=== PATIENT | female | born 2005 | race Caucasian/White ===

== ENCOUNTER 2023-07-17 21:54 | Emergency (ER) | payer BC, SELFPAY ==
[2023-07-17 22:01] VITALS: BP 127/81; PULSE 97; RESP 16; TEMP 36.7; O2SAT 98
--- NOTE | 2023-07-17 22:13 | ED.GENADULT ---
HPI - General Adult General Chief complaint: Fever Stated complaint: fever Time Seen by Provider: 07/17/23 22:06 Source: patient Mode of arrival: ambulatory Limitations: no limitations History of Present Illness HPI narrative: 18-year-old female, generally healthy at 15 weeks gestation presenting today with fever. Patient woke up this morning did not feel well. She went to the Urgent Care was diagnosed with right-sided otitis media and started on amoxicillin. She states that this afternoon her temperature spiked to 104 and the urgent care recommended she come to the ER. She states that she feels achy from head to toe. Feels tired and has decreased appetite. She did try to eat some dinner today and has been able to keep food and liquids down. She has not had any vomiting but does feel slightly nauseated. She denies any diarrhea, chest or abdominal pain. No dysuria, increased frequency , or urgency. She has a mild headache. She does have right-sided ear pain. No changes in her hearing or vision. Denies any sick contacts or recent travel. She states that she was tested for strep this morning and nothing else. This is negative. Patient last took Tylenol approximately 3 hours ago. Related Data Home Medications ?Medication ?Instructions ?Recorded ?Confirmed amoxicillin 500 mg capsule 1,000 mg PO BID 07/17/23 07/17/23 metoclopramide HCl 10 mg tablet 10 mg PO Q6H PRN nausea/vomiting 07/17/23 07/17/23 Allergies Allergy/AdvReac Type Severity Reaction Status Date / Time Sulfa (Sulfonamide Allergy Verified 07/17/23 22:06 Antibiotics) Review of Systems Status of ROS: Reports: 10 or more systems reviewed and unremarkable except as noted in History and below Exam Narrative: Exam Narrative: Well-nourished well-developed patient in no acute distress. Alert and oriented. Answers questions appropriately. Mood and affect are appropriate. Thoughts are goal oriented and rational. No tangential or magical thinking noted. Patient speaks in full sentences without needing to catch her breath. Speech is not slurred or pressure. She does not sound congested. Patient's vitals are normal, she is currently afebrile. HEENT: Normocephalic atraumatic. Pupils are equally round reactive to light. Extraocular muscles are intact. Conjunctivae are moist without any icterus noted. Moist mucous membranes. Posterior pharynx is normal. Neck is soft without any lymphadenopathy or thyromegaly. No masses are appreciated. Right TM is red and dull. Left TM is normal. Cardiovascular: Heart is regular rate and rhythm S1 and S2 are present without any murmurs. Lungs: Clear to auscultation bilaterally no wheezes rhonchi or rales are appreciated. Patient takes deep breaths without any discomfort. Abdomen: Soft and nontender nondistended with normal bowel sounds. No guarding or rebound. Extremities: Bilateral lower extremities are without edema. Skin: Well perfused without any obvious rashes. Const: Vital Signs, click to edit/add: Vital Signs - 24 hr 07/17/23 22:01 Temperature 98.1 F Pulse Rate [Pulse Oximeter] 97 Respiratory Rate 16 Blood Pressure [Ri ght Upper Arm] 127/81 Pulse Oximetry 98 Oxygen Delivery Me thod Room Air Course Course ED Course: Labs were drawn: Berrien is negative. CBC showed slight anemia with a hemoglobin of 10.4, does not have an elevated white cell count. Rapid strep is negative. Triple swab is negative. Vital Signs Vital signs: Initial Vital Signs Temperature 98.1 F 07/17/23 22:01 Temperature Source Temporal Artery Scan 07/17/23 22:01 Pulse Rate 97 07/17/23 22:01 Respiratory Rate 16 07/17/23 22:01 Blood Pressure 127/81 07/17/23 22:01 Blood Pressure Mean 96 07/17/23 22:01 Blood Pressure Position Sitting 07/17/23 22:01 Pulse Oximetry 98 07/17/23 22:01 Oxygen Delivery Method Room Air 07/17/23 22:01 Vital Signs Temperature 98.1 F 07/17/23 22:01 Pulse Rate 97 07/17/23 22:01 Respiratory Rate 16 07/17/23 22:01 Blood Pressure 127/81 07/17/23 22:01 Pulse Oximetry 98 07/17/23 22:01 Oxygen Delivery Method Room Air 07/17/23 22:01 Temperature 98.1 F 07/17/23 22:01 Pulse Rate 97 07/17/23 22:01 Respiratory Rate 16 07/17/23 22:01 Blood Pressure 127/81 07/17/23 22:01 Pulse Oximetry 98 07/17/23 22:01 Oxygen Delivery Method Room Air 07/17/23 22:01 Medical Decision Making MDM Narrative Medical decision making narrative: 18-year-old female 15 weeks gestation with fever and right-sided otitis media. Certainly symptoms could be secondary to viral infection.. There is no evidence of SIRS or sepsis. At this time recommend continuing the antibiotics and Tylenol as needed. Follow-up with OBGYN or primary care provider this week. Lab Data Lab results reviewed: Yes I reviewed the patient's lab results Labs: Lab Results 07/17/23 07/17/23 07/17/23 Range/Units 22:11 22:19 22:25 WBC 9.18 (4.50-11.00) K/uL RBC 3.38 L (4.00-5.20) m/uL Hgb 10.4 L (12.0-16.0) gm/dL Hct 30.1 L (33.0-51.0) % MCV 89 (80-100) fL MCH 31 (26-34) pg MCHC 35 (32-36) gm/dL RDW Coeff of Urvashi 12.3 (11.5-15.5) % Plt Count 262 (140-440) K/uL Neut % (Auto) 86.8 H (42.0-72.0) % Lymph % (Auto) 6.0 L (20-44) % Berrien % (Auto) 5.2 (0.0-11.0) % Eos % (Auto) 0.9 (0.0-7.0) % Baso % (Auto) 0.2 (0.0-3.0) % Neut # (Auto) 8.00 H (1.7-7.0) K/uL Lymph # (Auto) 0.60 L (0.90-2.90) K/uL Berrien # (Auto) 0.50 (0.00-0.90) K/UL Eos # (Auto) 0.08 (0.00-0.50) K/uL Baso # (Auto) 0.02 (0.00-0.30) K/uL Abs Immat Gran (auto) 0.08 (0.00-0.30) K/uL Imm/Tot Granulo (auto) 0.9 % SARS-CoV-2 (PCR) Negative SARS-CoV-2 (Negative) Monoscreen Negative (Negative) Influenza Type A (PCR) Negative PCR FLU A (Negative) Influenza Type B (PCR) Negative PCR FLU B (Negative) RSV (PCR) Negative PCR RSV (Negative) Group A Strep DNA NOT DETECTED (Not Detectd) Discharge Plan Discharge Clinical Impression: Fever, Otitis media Patient Disposition: Home, Self-Care Condition: Stable Additional Instructions: Testing today was negative for COVID, influenza, RSV, strep pharyngitis, mononucleosis. White blood cell count does not show any evidence of bacterial infection. Stay well hydrated. Take all antibiotics as prescribed. Okay to use Tylenol as needed/as directed for fevers. Recommend you follow-up with your primary care provider or your OBGYN this week or Sunday. Prescriptions: No Action amoxicillin 500 mg capsule 1,000 mg PO BID metoclopramide HCl 10 mg tablet 10 mg PO Q6H PRN (Reason: nausea/vomiting) Follow Up/Referrals: Maximiliano Carty MD [Staff Physician] - Stand Alone Forms: [employer] Info Instructions
[2023-07-17 22:44] LABS: Mono Screen* Negative (Negative)
--- OUTSIDE RECORDS SUMMARY | 2023-07-17 22:53 | XMS_ITS | Clinical Summary ---
[facility] Organization [facility] Address [address] [place] [address] Care Team Providers Care Wick Tender Name Role Phone Jose Raul Ott MD Primary Care Provider Source Comments You are receiving this document as you are listed as the primary care provider,follow-up provider, or the patient has been referred to you for consultation.This is in compliance with the Medicare and[facility] Hospitalcaid EHR Incentive Program,which states Providers who transition their patient to another setting of careor provider of care or refers their patient to another provider of care shouldprovide summary care record for each transition of care or referral. [employer] Allergies Active Allergy Reactions Criticality Noted Date Comments Sulfa Antibiotics Hives High 09/10/2014 Medications Medication Sig Dispensed Refills Start Date End Date Status sertraline (ZOLOFT) 50 MG tablet Take 1 Tablet (50 mg) by mouth daily. 30 Tablet 1 05/22/2022 Active metoclopramide (REGLAN) 10 MG tablet Take 1 Tablet (10 mg) by mouth every 6 hours as needed. 06/18/2023 Active amoxicillin (AMOXIL) 500 MG capsule Take 2 Capsules (1,000 mg) by mouth two times a day for 10 days. 40 Capsule 07/17/2023 07/27/2023 Active Active Problems Problem Noted Date Diagnosed Date Current moderate episode of major depressive disorder without prior episode 05/22/2022 Migraine without aura and wi thout status migrainosus, not intractable 02/24/2017 Comments Yes Resolved Problems Problem Noted Date Diagnosed Date Resolved Date Arthralgia 06/07/2016 02/10/2022 Overview: Arthralgia- followed by hiram, possible enthesitis, trying nabumetone 07/22 Encounters Date Type Department Care Team Description 07/17/2023 12:20 PM CDT Office Visit [place] [address] [facility] [address] [place] [address] Jacqui Cleveland MD Sore throat; Non-recurrent acute suppurative otitis media of right ear without spontaneous rupture of tympanic membrane 05/03/2023 6:20 PM CDT Office Visit [place] [address] [facility] [address] [place] [address] Sunday Navarrete, TIMBER BUCKER, SWITCH ENGINEER Encounter for test, result unknown; , unspecified gestational age from Last 3 Months Immunizations Name Administration Dates Next Due 4vHPV (Gardasil) 09/09/2015 9vHPV (Gardasil 9) 11/02/2017,01/06/2016, 016 Bexsero (Meningococcal Group B Vaccine) 04/21/2020 DTaP 05/20/2004, 4,2003,2003 [id number] (Pediarix) 2003,2003,0 2003 DTaP/Hib 05/20/2004 Flu Vac (3+ yrs) 11/20/2014, 1,12/02/2009,2008 Flu Vac Preserv Free (3+yrs) 11/15/2015, 11/19/2014,12/02/2009,2008 [id number] 02/17/2009,12/29/2008 H1n1 Laiv Medimmune 2-49 Yr (Intranasal) 02/17/2009 HepA Ped/Adol (1-18 yrs) 11/02/2017,01/06/2016 HepB Ped/Adol (0-18 yrs) 11/02/2017,07/07,2003,2003 Hib (ActHIB) 05/20/2004, 4,2003,2003 Hib (HbOC) 2003 Hib (PedvaxHIB) 2003 IPV (Polio) 09/08/2015, 4,2003,2003 Influenza (Solo Only) (Flul aval Quad 0.5, 3+ yrs) 10/29/2016 Influenza (Flucelvax), Prese rv Free QIV 10/29/2016 Influenza IIV4 (Quadrivalent ) 0.5mL ([id number]) 02/10/2022,04/06/2021,11/23/2019,2018,11/04/2017 Influenza, Unspecified Formulation 11/04,11/02/2017(Deferred: Other),10/29/2016,11/20/2014,12/01/2012 ,12/02/2009,12/29/2008 MCV4 (Menactra) 04/06/2021,09/09/2015 MCV4 Menveo 2m.+ (two vial) 02/17/2019 MMR 01/06/2016,02/02/2004 PCV20 ([id number]) 05/22/2022 Pfizer Monovalent 12+ 04/06/2021 Pfizer Monovalent 12+ Purple Top 10/22/2020,09/06 Pneumococcal 7, PED 05/20/2004, 4,2003,2003 Tdap 09/09/2015 Varicella 01/06/2016,02/02/2004 Social History Tobacco Use Types Packs/Day Years Used Date Smoking Tobacco: Some Days Cigarettes Smokeless Tobacco: Former Alcohol Use Standard Drinks/Week Comments Yes 0 (1 standard drink = 0.6 oz pur e alcohol) PHQ-2 Answer Date Recorded PHQ-2 Score 5 05/22/2022 Financial Resource Strain Answer Date R ecorded Is it hard for you to pay fo r the very basics like food, housing, medical care or heating? No 05/22/2022 Food Insecurity Answer Date Recorded Does your food run out before you have the money to buy more? No 05/22/2022 Transportation Needs Answer Date Record ed Does a lack of transportatio n keep you from your medical appointments or from getting your medications? No 023 Comments Yes Sex and Gender Information Value Date Recorded Sex Assigned at Not on file Gender Identity Not on file Sexual Orientation Not on file Last Filed Vital Signs Vital Sign Reading Time Taken Comments Blood Pressure 125/68 07/17/2023 12:25 PM CDT Pulse 89 07/17/2023 12:25 PM CDT Temperature 36.6 ??C (97.9 ??F) 07/17/2023 12:25 PM C DT Respiratory Rate 16 07/17/2023 12:25 PM CDT Oxygen Saturation 100% 07/17/2023 12:25 PM CDT Inhaled Oxygen Concentration - - Weight 63 kg (139 lb) 02/10/2022 8:10 AM VISUAL MERCHANDISING ASSISTANT Height 87.6 cm (2' 10.5) 02/08/2005 9:48 AM VISUAL MERCHANDISING ASSISTANT C: 87.6cm Body Mass Index - - Plan of Treatment Health Maintenance Due Date Last Done Comments COVID-19 Vaccine (2022-2 4 season) 2022 04/06/2021, 10/22/2020, 09/24/2020 Adult Preventive Visit 05/23/2023 05/22/2022 Influenza (Season Ended) 2023 023, 04/06/2021, 11/23/2019, Additional history exists Chlamydia 06/10/2024 06/11/2023, 07/0 05/2022, 05/22/2022 DTaP/Tdap/Td (6 - Tdap) 09/08/2025 09/09/19 16, 05/20/2004, 05/20/2004, Additional history exists Zoster/Shingles (1 of 2) 2053 Hib Completed 05/20/2004, 05/06, 2003, Additional history exists IPV (Polio) Completed 09/08/2015, 07/07, 2003, Additional history exists HPV Vaccine Completed 11/02/2017, 1202/2015, 09/09/2015, Additional history exists HepA Completed 11/02/2017, 01/06/2016 HepB Completed 11/02/2017, 07/07, 2003, Additional history exists MCV4 Completed 04/06/2021, 02/05, 09/09/2015 Hep C Screening (Preventive Services) Completed 05/22/2022 Pneumococcal Completed 05/22/2022, 05/06, 2003, Additional history exists HIV Screening (Preventive Services) Completed 06/11/2023, 05/22/2022 Procedures Procedure Name Priority Date/Time Associated Diagnosis Comments STREP GROUP A, MOLECULAR DETECTION Waiting 07/17/2023 12:27 PM CDT Sore throat TEST (URINE) STAT 05/03/2023 5:20 PM CDT Encounter for test, result unknown HIV 1/2 AG/AB 4TH GEN Routine 05/22/2022 3:28 PM CDT Screening for HIV (human immunodeficiency virus) HEPATITIS C ANTIBODY, WITH REFLEX Routine 05/22/2022 3:28 PM CDT Need for hepatitis C screening test CHLAMYDIA & GC, URINE (14 YEARS AND OLDER) Routine 05/22/2022 3:28 PM CDT Current moderate episode of major depressive disorder without prior episode (HRC) from Last 3 Months or Most Recently Relevant to Health Maintenance Results * STREP GROUP A, Molecular Detection-Collect Now in current encounter (07/17/2023 12:27 PM CDT) Group A Strep Not Detected Not Detected 024 1:03 PM CDT [facility] Comment:Methodology: Qualita tive real-time PCR assay Swab (Source Required) THROAT SWAB / Unknown Non-blood Collection / Unknown 07/17/2023 12:27 PM CDT 07/17/2023 12:38 PM CDT [facility] [address] [place] [address], [facility] * (ABNORMAL) Test (Urine) - Collect in Clinic Today (05/03/2023 5:20 PM CDT) Pathologist [facility] HCG, Urine Positive(A ) Negative 05/03/2023 5:30 PM CDT [facility] Urine Non-blood Collection / Unknown 05/03/2023 5:20 PM CDT 05/03/2023 5:25 PM CDT [facility] [address] [place] [address], [facility] * HIV 1/2 Ag/Ab 4th Generation (05/22/2022 3:28 PM CDT) [facility] HIV 1/2 Antigen/Antib walter (4th generation) Negative (Non Reactive) Negative (Non Reactive) 05/22/2022 9:56 PM CDT [facility] Comment:HIV-1 p24 Antigen an d HIV-1/HIV-2 Antibody not detected Blood Venipuncture / Unknown 05/22/2022 3:28 PM CDT 05/22/2022 3:28 PM CDT Jose Raul Ott MD [facility] [address] [place], [place] [id number] [place] [address] * Chlamydia & GC, Urine (14 Years and Older) (05/22/2022 3:28 PM CDT) [facility] Chlamydia Trachomatis STD Not Detected Not Detected 05/23/2022 1:24 PM CDT [facility] N. gonorrhoeae STD Not Detected Not Detected 05/23/2022 1:24 PM CDT [facility] Urine STD Non-blood Collection / Unknown 05/22/2022 3:28 PM CDT 05/22/2022 3:28 PM CDT Narrative [facility] - 05/23/2022 1:24 PM CDT Test performed by Regional Sales Leader Mediated Amplification (TMA). Urine Volume submitted was greater than 30 ml. Excess collection volume may decrease test sensitivity. Recollection suggested if clinically indicated. Jose Raul Ott MD [facility] [address] [address] [phone] * Hepatitis C Antibody, with Reflex (05/22/2022 3:28 PM CDT) Hepatitis C Antibody Negative (Non Reactive) Negative (Non Reactive) 05/22/2022 9:56 PM CDT [facility] Comment:Antibodies to HCV no t detected. Does not exclude the possiblity of exposure to HCV. Blood Venipuncture / Unknown 05/22/2022 3:28 PM CDT 05/22/2022 3:28 PM CDT Jose Raul Ott MD [facility] [address] [place], [place] [address] from Last 3 Months or Most Recently Relevant to Health Maintenance Care Teams Wick Tender Relationship Specialty Start Date End Date Jose Raul Ott MD [address] [place] [address] PCP - General Family Practice 02/10/22
--- OUTSIDE RECORDS SUMMARY | 2023-07-17 22:54 | XMS_ITS | Referral Summary ---
Author Organization [facility] Address [address] [place] [address] Care Team Providers Care Housing Case Manager Name Role Phone Kellie Turpin MD Unavailable Kizzy Novak PA-C Primary Care Provider [phone] Lachelle Ortiz MD Unavailable [phone] Melinda Kc APRN DATABASE DESIGNER Unavailable [phone] Allergies Active Allergy Reactions Criticality Noted Date Comments Sulfa Antibiotics 01/19/2017 Rash and hives Medications Medication Sig Dispensed Refills Start Date End Date Status rizatriptan (MAXALT) 5 MG tabletIndications:No nintractable migraine, unspecified migraine type Take 2 tablets (10 mg) by mouth at onset of headache for migraine 30 tablet 1 12/11/2017 Active drospirenone-ethinyl estradiol (BRANDEN) 3-0.02 MG tablet Take 1 tablet by mouth daily 03/31/2021 Active propranolol ER (INDERAL LA) 60 MG 24 hr capsuleIndications:M igraine without aura and without status migrainosus, not intractable Take 1 capsule (60 mg) by mouth daily 90 capsule 3 04/06/2021 Active Active Problems Problem Noted Date Diagnosed Date Migraine without aura and wi thout status migrainosus, not intractable 02/24/2017 Immunizations Name Administration Dates Next Due COVID-19 MONOVALENT 12+ (Pfizer) 10/22/2020,08 COVID-19 Monovalent 12+ (Pfizer 2021) 04/06/2021 DTAP (<7y) 05/20/2004, 4,2003,04/06 DTaP/HepB/IPV 2003,2003,2003 Flu, Unspecified 12/01/2012 F2x8-22 Novel Flu- Nasal 02/17/2009 HEPATITIS A (PEDS 12M-18Y) 11/02/2017,01/06/2016 HIB (PRP-T) 05/20/2004, 4,2003,04/06 HIB(PRP-OMP)(PedvaxHIB) 2003 HPV 11/02/2017 HPV Quadrivalent 09/09/2015 HPV9 01/06/2016,09/09/2015 HepB 2003,2003,2003 Hepatitis B, Peds 11/02/2017, 4,2003,04/06 Historic Hib Hib-titer 2003 Influenza (H1N1) 02/17/2009,12/29/2008, 9 Influenza (IIV3) PF 11/20/2014, 1,12/02/2009,12/29 Influenza Vaccine >6 months,quad, PF 03/2021,11/23/2019,10/17/2018,11/04 Influenza Vaccine, 6+MO IM (QUADRIVALENT W/PRESERVATIVES) 10/29/2016 Influenza, seasonal, injectable, PF 11/05,11/19/2014,12/02/2009,12/29 Influenza,INJ,MDCK,PF,Quad >6mo(Flucelvax) 10/29/2016 MMR 01/06/2016,02/02/2004 Meningococcal ACWY (Menactra??) 04/06/2021,09/08 Meningococcal ACWY (Menveo??) 02/17/2019 Meningococcal B (Bexsero??) 04/21/2020 Pneumococcal (PCV 7) 05/20/2004,07/29/19 04,2003,04/06 Poliovirus, inactivated (IPV) 09/08/2015 ,2003,2003,04/06 TDAP Vaccine (Boostrix) 09/09/2015 TRIHIBIT (DTAP/HIB, <7y) 05/20/2004 Varicella 01/06/2016,02/02/2004 Social History Tobacco Use Types Packs/Day Years Used Date Smoking Tobacco: Never Smokeless Tobacco: Never Comments:not exposed to [place] hand smoke Alcohol Use Standard Drinks/Week Comments No 0 (1 standard drink = 0.6 oz pur e alcohol) PHQ-2 Answer Date Recorded PHQ-2 Score 0 04/06/2021 Adolescent Education Answer Date Record ed Getting School Help Needed Not on file 11/22 Sex and Gender Information Value Date Recorded Sex Assigned at Not on file Gender Identity Not on file Sexual Orientation Not on file Last Filed Vital Signs Vital Sign Reading Time Taken Comments Blood Pressure 108/66 04/06/2021 9:00 AM PROMPT CARE RN Pulse 83 04/06/2021 9:00 AM PROMPT CARE RN Temperature 36.6 ??C (97.8 ??F) 04/06/2021 9:00 AM CS T Respiratory Rate 18 04/06/2021 9:00 AM PROMPT CARE RN Oxygen Saturation 98% 04/06/2021 9:00 AM PROMPT CARE RN Inhaled Oxygen Concentration - - Weight 61.2 kg (135 lb) 04/06/2021 9:00 AM PROMPT CARE RN Height 167.6 cm (5' 6) 04/06/2021 9:00 AM PROMPT CARE RN Body Mass Index 21.79 04/06/2021 9:00 AM PROMPT CARE RN Plan of Treatment Not on file Procedures Procedure Name Priority Date/Time Associated Diagnosis Comments NEISSERIA GONORRHOEAE PCR Routine 04/06/2021 9:58 AM PROMPT CARE RN Routine screening for STI (sexually transmitted infection) HIV ANTIGEN ANTIBODY COMBO Routine 04/06/2021 9:54 AM PROMPT CARE RN Screening for HIV (human immunodeficiency virus) HEPATITIS C SCREEN REFLEX TO HCV RNA QUANT AND GENOTYPE Routine 04/06/2021 9:54 AM PROMPT CARE RN Need for hepatitis C screening test from Last 3 Months or Most Recently Relevant to Health Maintenance Results * NEISSERIA GONORRHOEA PCR (04/06/2021 9:58 AM PROMPT CARE RN) [facility] Neisseria gonorrhoeae Negative Negative 04/07/2021 1:40 PM PROMPT CARE RN [facility] Comment:Negative for N. gono rrhoeae rRNA by buckle attaching machine operator mediated amplification. A negative result by buckle attaching machine operator mediated amplification does not preclude the presence of C. trachomatis infection because results are dependent on proper and adequate collection, absence of inhibitors and sufficient rRNA to be detected. Swab VAGINAL STRUCTURE / Unknown Non-blood Collection / Unknown 04/06/2021 9:58 AM PROMPT CARE RN 04/06/2021 9:58 AM PROMPT CARE RN Melinda Kc APRN [facility] - MICRO GEN ERAL ORDERABLES [facility] Inf. Diseases Diag. Lab [address] [facility], [address] [place] [address], [facility] [phone] * HIV Antigen Antibody Combo (04/06/2021 9:54 AM PROMPT CARE RN) [facility] HIV Antigen Antibody Combo Nonreactive Nonreactive 04/06/2021 6:55 PM PROMPT CARE RN SPECIALTY CORE/PROT/EN DO Comment:HIV-1 p24 Ag & HIV-1 /HIV-2 Ab Not Detected Blood STRUCTURE OF RIGHT UPPER LIMB / Unknown Venipuncture / Unknown 04/06/2021 9:54 AM PROMPT CARE RN 04/06/2021 9:55 AM PROMPT CARE RN Melinda Kc APRN [facility] - BLOOD ORD ERABLES [facility] SPECIALTY CORE/PROT/ENDO UM Specialty Core/Prot/Endo [address] [facility], [address] [place] [address], [facility] [phone] * Hepatitis C Screen Reflex to HCV RNA Quant and Genotype (04/06/2021 9:54 AM PROMPT CARE RN) Hepatitis C Antibody Nonreactive Nonreactive 04/06/2021 6:55 PM PROMPT CARE RN SPECIALTY CORE/PROT/EN DO Blood STRUCTURE OF RIGHT UPPER LIMB / Unknown Venipuncture / Unknown 04/06/2021 9:54 AM PROMPT CARE RN 04/06/2021 9:55 AM PROMPT CARE RN Narrative SPECIALTY CORE/PROT/ENDO - 04/06/2021 6:55 PM PROMPT CARE RN Assay performance characteristics have not been established for newborns, infants, and children. Melinda Kc APRN DATABASE DESIGNER LAB - BLOOD ORD ERABLES UM SPECIALTY CORE/PROT/ENDO Specialty Core/Prot/Endo [address] [facility], [address] [phone] from Last 3 Months or Most Recently Relevant to Health Maintenance Care Teams Housing Case Manager Relationship Specialty Start Date End Date Kizzy Novak, SAMMI [address] [place] [address] [phone] PCP - General Physician Core Man 10/30/16 Kellie Turpin MD [facility] [place], [place] [address] Pediatric Rheumatology 08/09/16 Lachelle Ortiz MD [address] [facility] [address] [place], [place] [id number] Pediatric Neurology 10/30/16 Melinda Kc APRN DATABASE DESIGNER [address] [place] [address] Assigned PCP 04/10/21
--- OUTSIDE RECORDS SUMMARY | 2023-07-17 22:54 | XMS_ITS | Clinical Summary ---
Author Organization [facility] Address [place], [place] [address] Care Team Providers Care Rubber Stamp Die Inspector Name Role Phone None Primary Care Provider Unavailabl e Venita Green DO Unavailable [phone] Allergies Active Allergy Reactions Criticality Noted Date Comments Sulfa (Sulfonamide Antibiotics) Hives 07/2014 Medications Medication Sig Dispensed Refills Start Date End Date Status vit no.124/iron/folic ( VITAMIN ORAL) Take 1 Tablet by mouth once daily. Active influenza vaccine 2017-, 6 mos up, PF IM syringe, FLULAVAL QUAD, (Fluarix Quad [id number], PF,) 60 mcg (15 mcg x 4)/0.5 mL IM syringe ADM 0.5ML IM UTD 11/04/2017 Activ e metoclopramide HCl (REGLAN) 10 mg tabletIndications:Rell sea and vomiting during Take 1 Tablet (10 mg) by mouth every 6 hours if needed for Nausea/Vomiting. 30 Tablet 1 06/18/2023 Active Active Problems Problem Noted Date Diagnosed Date MPP High-risk supervision 06/12/2023 Overview: SRO MPP - Completed [x] Patient name: Allyson Ortiz : 2005 Age: 18 y.o. Date of SRO: 06/12/2023 Estimated Date of Delivery: 01/08/24 Gest Age: 10w0d G/P: Current BMI: 21.53 Requested Discussion Topics: L2 : patient brother with hypoplastic left heart syndrome Genetic screening section: brother with blood diorder/hemophilia - not sure of name, on ASA REFERRING PROVIDER/CLINIC LOCATION/FAX #: Rubber Stamp Die Inspector Role and Specialty Contact Info Address Start End Comments Venita Green DO Referring Provider (Obstetrics and Gynecology) [address] [address] 06/12/2023 - - Primary MD approves scheduling of recommended ultrasounds/testing: Yes Please schedule the following: [x] [place] [] Multiples: [] Consult [x] Ultrasound: - Level 2 (including echo) - 60 minutes [] Lab: [x] Genetic Counseling [x] Before [] After []15 [x] 30 []45 []NT []CVS []Amnio [] BMI > 40 [] Shift Mechanic - Language [] [place] Insurance: Location Specialty Days Any [facility] [] In-person [] Virtual [] Either N/A Comments: RN: SERJIO BERMUDEZ RN Civil Engineering Director: GLO GC: VIVI WOOD/Provider: EN Date:06/12/2023 Urgency: L2 time []Can be sooner [] Can be split Allyson Nolan Diana : 2005 [facility] ULTRASOUND/TESTING PATIENT MPP CONSULT ON REFERRING PROVIDER/CLINIC LOCATION/FAX #: Rubber Stamp Die Inspector Role and Specialty Contact Info Address Start End Comments Venita Green DO Referring Provider (Obstetrics and Gynecology) [address] [facility] [address] [place] [address] 06/12/2023 - - Primary provider approves scheduling of recommended ultrasounds/testing: Yes Support person name: Shift Mechanic: No ULTRASOUND TYPE: L 2 REASON FOR VISIT: patient's brother with hypoplastic left heart syndrome NEXT VISIT ALERTS: NURSING VISIT ALERT: Create and link episode at day of visit. Document in Dating section. GA Final TINY by LMP LMP Date: Patient's last menstrual period was 04/03/2023 (exact date). TINY:01/08/24 Early US: Date: 06/01/23 GA: 8w3d TINY: 01/08/24 PrePregnancy Weight: 141 # Height: 67.32 in BMI: 21.87 PLANS & FUTURE APPOINTMENTS: ULTRASOUND/GROWTH PLAN: - Through: - Growth: Next TESTING PLAN: - Testing: Through DELIVERY PLAN: - Scheduled delivery: - Preferred delivery location: PRIMARY DIAGNOSIS: 18 y.o. Estimated Date of Delivery: 01/08/24 MATERNAL Family Patient's brother with hypoplastic left heart syndrome - 14 yo on transplant list Genetic screening brother with blood diorder/hemophilia - not sure of name, on ASA ? PREVIOUS ULTRASOUNDS: (PCP) ECHO: SPECIALISTS/CONSULTS: Include: Specialty MD Clinic Name Phone# [place] and ADDED TO PATIENT CARE TEAM GENETICS: NIPS: declined AFP: CARE COORDINATION: PERTINENT LABS: Labs reviewed? Yes Normal? Yes Blood type: O Rh Positive Antibody screen: Negative Non-[facility] labs need to be entered in EPIC? No PERTINENT MEDS: PROCEDURES: IF FGR <10% or EFW <2000 grams: Add FGRPCOM PLAN OF CARE: Original and updated POC Supervision of normal [facility] 05/15/2023 Overview: Dated by: LMP, no dating US Prepregnancy BMI: no VS at this visit concerns/risk factors: Initial labs: (reviewed/completed) Early GCT: not indicated HSV: ASA: not indicated Previous deliveries reviewed by MD: Genetic Testing: The patient is unsure, will call back History of abnormal pap: No, no Hx of PAP Anatomy US 19-20 weeks: 24-28 week labs: Rhogam indicated: Tdap/Flu shot: 36 week GBS: Allergies Allergen Reactions Sulfa (Sulfonamide Antibiotics) Hives Covid Screening: PP Contraception plan: Estimated Date of Delivery Comme nts Yes 01/08/2024 Based on last me nstrual period of 04/03/2023 (Exact Date) Encounters Date Type Department Care Team Description 07/17/2023 Nurse Triage [facility] [address] [place] [phone] Venita Green, Chest Pain 07/04/2023 8:30 AM CDT OB Encounter [facility] [address] [place] [phone] Venita Green DO Care (13w1d.) 07/04/2023 Travel 06/18/2023 Telephone [facility] [address] [place] [address] Venita Green DO Medication Management (Zofran ) 06/12/2023 Transcribe Orders [facility] [address] [facility] [address] [place] [address] Venita Green DO 06/11/2023 9:00 AM CDT OB Encounter [facility] [address] [place] [address] Venita Green DO Care (Initial OB. 9w6d.) 06/11/2023 Travel 06/01/2023 9:45 AM CDT Ancillary Procedure [facility] [address] [place] [address] 06/01/2023 Travel 05/15/2023 11:15 AM CDT Phone OB Encounter [facility] [address] [place] [phone] Education (OB Intake 6 weeks) 05/08/2023 7:30 AM CDT Office Visit [facility] [address] [facility] [address] [place] [address] Venita Green, Nuclear Medicine Pet Ct Technologist Exam (5w0d. Wanting to discuss the do's and don'ts of . ) 05/08/2023 Travel from Last 3 Months Immunizations Name Administration Dates Next Due COVID-19 vaccine (Matrim[employer]-Bio NTech 30mcg/0.3mL) PF, MDV 10/22/2020,09/24/2020 DTaP 05/20/2004, 4,2003,04/06 DTaP-HIB (TriHIBIT) 05/20/2004 AUtT-DmnA-OYG (Pediarix) 2003,2003,0 2003 HIB HbOC (HibTITER) 2003 HIB PRP-OMP (PedvaxHIB) 2003 HIB PRP-T (ActHIB,Hiberix) 05/20/2004,,2003,04/06 HPV 9 (Gardasil 9) 11/02/2017,01/06/2016, 016 Hepatitis A (Peds) 11/02/2017,01/06/2016 Hepatitis B (Peds) 11/02/2017, 4,2003,06/11,2003,2003,2003 Human Papilloma Virus Vaccine 09/09/2015 Inactivated Polio Vaccine 09/08/2015,,2003,04/06 Influenza A (H1N1), Inactivated 02/17/2009,12/29 Influenza A (H1N1), Live Intranasal 02/17/2009 Influenza Virus, Unspecified 11/04/2017, 11/02/2017(Deferred: Patient Refused),10/29/2016,11/20/2014, 013,12/02/2009,12/29/2008 Influenza, IIV3 (Age 6-35 mos) 6,11/19/2014,12/02/2009,12/29 Influenza, IIV3 (Age >=3 years) 11/19/2010 Influenza, IIV4 02/10/2022,,11/23/2019,10/17,11/04/2017 Influenza,CCIIV4 PRESERV FREE 10/29/2016 MMR 01/06/2016,02/02/2004 Meningococcal B 04/21/2020 Meningococcal Vaccine (Menactra) 04/06/2021,08/0 05/2015 Meningococcal Vaccine (Menveo) 02/17/2019 Pneumococcal Conj 20-valent (Prevnar 20) 05/22/2022 Pneumococcal conj 7-Valent (Prevnar 7) 0 05/20/2004,2003,2003,04/06 Tdap 09/09/2015 Varicella Vaccine 01/06/2016,02/02/2004 Family History Medical History Relation Name Comments Other Brother hypoplastic lef t heat syndrome Migraines Father Polycystic ovary syndrome Mother Relation Name Status Comments Brother Alive Father Alive Maternal Grandfather Alive Maternal Grandmother Mother Alive Paternal Grandfather Alive Paternal Grandmother Sister Alive Social History Tobacco Use Types Packs/Day Years Used Date Smoking Tobacco: Some Days Smokeless Tobacco: Former Quit: 10/2022 Tobacco Cessation:Ready to Q uit: Yes; Counseling Given: Not Answered Alcohol Use Standard Drinks/Week Comments Never 0 (1 standard drink = 0.6 oz pur e alcohol) PHQ-2 Answer Date Recorded PHQ-2 TOTAL SCORE 0 01/11/2023 Social Connections Answer Date Recorded Frequency of Communication with Friends and Fami ly 0 05/08/2023 Financial Resource Strain Answer Date R ecorded Difficulty of Paying Living Expenses 3 05/08/2023 Difficulty of Paying Living Expenses Not on file 05/08/2023 Food Insecurity Answer Date Recorded Worried About Running Out of Food in the Last Ye ar 1 05/08/2023 Transportation Needs Answer Date Record ed Lack of Transportation (Medical) 1 05/08/2023 Housing Stability Answer Date Recorded Unable to Pay for Housing in the Last Year 1 05/08/2023 Estimated Date of Delivery Comme nts Yes 01/08/2024 Based on last me nstrual period of 04/03/2023 (Exact Date) Sex and Gender Information Value Date Recorded Sex Assigned at Not on file Gender Identity Not on file Sexual Orientation Not on file Obstetrics History Para Term AB IAB SAB Ectopic Multiple Livin g Live Births 1 0 0 0 0 0 0 0 0 0 0 Date Outcome GA Total Labor Labor/2nd/3rd Weight Sex Type Anes PTL Lauren A1 A5 Name Clin Current Summary Episode Dates Number of Fetuses Estimated Date of Delivery 05/15/2023 - Present (07/17/2023) 01/08/2024 (set by Cynthia Warren RN on 05/15/2023 based on Last Menstrual Period on 04/03/2023 (Exact Date)) Dating Summary Based On TINY GA Diff Last Menstrual Period on 04/03/2023 (Exact Date) 01/08/2024 Working Alternate TINY Entry 01/08/2024 Same Comment:Date entered prior t o episode creation Overview and Plan Support person:Yovana Bocanegra Delivery Plans Planned delivery method:Vaginal Planned delivery location:[facility] Acceptable blood products:All Vitals Pregravid Weight Height TWG (As of 07/17/2023) Pregrav id BMI 64 kg (141 lb) 1.71 m (5' 7.32) -1.54 kg (-3 lb 6.4 o z) 21.87 Notes Progress Notes - OB Encounte r - 07/04/2023 - GA:13w1d 07/04/2023 - 13w1d - Venita Green DO Subjective: Allyson Ortiz is being seen today for her obstetrical visit. She is at 13w1d gestation and a Estimated Date of Delivery: 01/08/24 Patient reports headaches and migraines. Used to get migraines prior to but wasn't too bad the last 1-2 years. Movement: Has not felt movement yet. Objective: BP 100/66 (Cuff Site: Left Arm, Position: Sitting, Cuff Size: Adult Regular) Pulse 76 Wt 62.4 kg (137 lb 9.6 oz) LMP 04/03/2023 (Exact Date) Assessment and Plan: female at 13w1d Level 2 US scheduled History of cocaine use in 2022 UDS at first visit negative Brother with hypoplastic left heart syndrome Level 2 US ordered Migraines in Referral neurologist placed Delivery plan: HSVD Follow-up in 4 weeks Progress Notes - OB Encounte r - 06/11/2023 - GA:9w6d 06/11/2023 - 9w6d - Venita Green DO Allyson Ortiz is a 18 y.o. year old female , OB History Para Term AB Living 1 0 0 0 0 0 SAB IAB Ectopic Multiple Live Births 0 0 0 0 0 who has @IUP@, and presents for 1st OB visit. EDC: 01/08/2024 by LMP confirmed by early ultrasound. Patient has prior history of none Has been nauseous most morning. Vomiting some mornings. Discussed NIPT screening and patient declines. Diet and exercise discussed, as well as general accountant information, lifestyle, nutrition, exercise, warning signs, resources, lab testing, risk screening, and cystic fibrosis testing. Medication Documentation Review Audit Prior to Admission medications have not yet been reviewed for this encounter PHYSICAL EXAM BP 108/62 (Cuff Site: Right Arm, Position: Sitting, Cuff Size: Adult Regular) Ht 1.71 m (5' 7.32) Wt 63 kg (138 lb 12.8 oz) LMP 04/03/2023 (Exact Date) BMI 21.53 kg/m?? General Appearance: Alert, appropriate appearance for age. No acute distress. HEENT Exam: Grossly normal. Neck / Thyroid Exam: Supple Lungs: No respiratory distress noted. No accessory muscle use noted Cardiovascular Exam: Regular rate Abd: Soft, non-tender, no masses or organomegaly. Skin: no rashes or lesions. Psychiatric Exam: Alert and oriented x 3, appropriate affect. IMPRESSION and PLAN Normal first visit. Size equals dates. Labs to be done today Insurance does not cover B6 and Unisom- given information to start those medications for nausea. Discussed when to reach out if no improvement. History of cocaine use 2022-urine drug screen ordered today Brother with hypoplastic left heart syndrome Level 2 US ordered Return to office in four weeks. Total time preparing to see this patient, [id number] time, and coordinating care time on the same calendar date: 45 minutes. Venita Green DO .................... 06/11/2023 9:18 AM Progress Notes - Phone OB En counter - 05/15/2023 - GA:6w0d 05/15/2023 - 6w0d - Cynthia Warren RN Patient Summary: OB RN phone intake completed with patient today. LMP 04/03/23, 6 weeks gestation today. First Hx Drug Use (2022) Patient's 14 y.o. brother on heart transplant list. Born with Hypoplastic Left Heart Syndrome Patient transfer of care: no If yes, patient reason for transfer N/A 1st OB Visit: 06/10 Patient to see MD @ 10-12 wks gestation. Labs ordered. Daytime (OK for detailed msg per patient) Preferred Pharmacy: [id number] - [place], [place] - [address] [address] [phone] [place] [id number] MENSTRUAL HISTORY LMP: Patient's last menstrual period was 04/03/2023 (exact date). Date Reliability: definite Menses Every: irregular (due to IUD) Menstrual Flow: normal No results found for: INTERPRESLT, HPVRESULTS, [id number], [id number] * *Gestational Age @ Intake Visit: 6 weeks *Pertinent Medical History: * Early GCT indicated: Indication for Early GCT: None. Order placed: No * US for: dating * Drug screen needed? Yes, Hx Cocaine use in 2022, patient states agreement with urine drug screen. * Nausea /Vomiting in : OTC Meds Reviewed and sent to patient via [employer]t * Denies History of (+) test/culture MDRO/ Multi drug resistant organisms. This represents: VRE, MRSA & ESBL Patient will review information and call [employer] to check insurance coverage if she is interested. * Genetic testing in reviewed with patient. Discussed follow-up steps if patient were to have a positive screen. * Sequential Screen info Pt instructed on timing of test, scheduling information and advised to verify coverage with insurance carrier prior to testing. * Cystic Fibrosis Screening info * Chlamydia/Gonorrhea screening discussed with patient, verbalized understanding * Smoking Cessation information given to patient: * OB visit summary/clinic info, medications in , and frequently asked questions reviewed with patient. Patient instructed to download [employer], verbalized understanding. SYMPTOMS: breast tenderness, nausea, fatigue, and cramping My Chart Accept Have you ever been hit, kicked, pushed, or otherwise hurt or mistreated by someone important to you? no Is someone important to you yelling at you or threatening you or otherwise trying to control your life? no (DV screen also documented in Extended Vitals) Does patient request sterilization after ? Cynthia Warren RN [facility] observation assistant [place]. 05/15/2023 11:33 AM Last Filed Vital Signs Vital Sign Reading Time Taken Comments Blood Pressure 100/66 07/04/2023 8:38 AM CDT Pulse 76 07/04/2023 8:38 AM CDT Temperature 37 ??C (98.6 ??F) 02/06/2023 11:26 AM POLICY CHANGE CLERK Respiratory Rate 16 10/05/2022 12:15 AM CDT Oxygen Saturation 100% 02/06/2023 11:26 AM POLICY CHANGE CLERK Inhaled Oxygen Concentration - - Weight 62.4 kg (137 lb 9.6 oz) 07/04/2023 8:38 A M CDT Height 171 cm (5' 7.32) 06/11/2023 9:16 AM CDT Body Mass Index - - Plan of Treatment Upcoming Encounters Date Type Department Care Team (Late st Contact Info) Description 07/24/2023 7:45 AM CDT OB Encounter [facility] [address] [address] [place] [address] Venita Green, [address] [facility] [address] [place] [address] 08/14/2023 8:00 AM CDT Appointment [facility] [address] [facility] [address] [place] [address] 08/14/2023 8:30 AM CDT Appointment [facility] [address] [facility] [address] [place] [address] Health Maintenance Due Date Last Done Comments Well Child Check for age 3-20 12/27/2005 COVID-19 vaccine series ( season) 2022 04/06/2021, 10/22/2020, 09/24/2020 Influenza for age 9-49 10/07/2023 , 04/06/2021, 11/23/2019, Additional history exists Depression screening for age 12+ 01/12/2024 01/12/20, 11/08/2021 BMI (ht and wt on same day) for age 18+ 06/10/2024 06/11/2023, 05/08/2023, 09/21/2022, Additional history exists Chlamydia for age 16-24 06/10/2024 06/11/2023, 08/08 Tetanus booster 09/08/2025 09/09/2015 Tdap Completed 09/09/2015 HPV series for age 9-26 Completed 11/03/19 18, 01/06/2016, 09/09/2015, Additional history exists Meningococcal series for age 11-21 Completed 04/06/2021, 02/17/2019, 09/09/2015 Pneumococcal series for age 6-64 Completed 05/22/2022, 05/20/2004, 2003, Additional history exists HIV for age 15-65 Completed 06/11/2023 Hepatitis C screening for ag e 18-79 Completed 06/11/2023 Procedures Procedure Name Priority Date/Time Associated Diagnosis Comments GC CHLAMYDIA TRACH PROBE Routine 06/11/2023 10:03 AM CDT Encounter for supervision of normal first in first trimester COMPLIANCE DRUG ANALYSIS Routine 06/11/2023 10:03 AM CDT Supervision of normal first , antepartum UA W/ SEDIMENT EXAM REFLEXED PER CRITERIA Routine 06/11/2023 10:03 AM CDT Supervision of normal first , antepartum URINE CULTURE Routine 06/11/2023 10:03 AM CDT Supervision of normal first , antepartum TYPE & SCREEN Routine 06/11/2023 9:55 AM CDT Supervision of normal first , antepartum ANTI HCV Routine 06/11/2023 9:55 AM CDT Supervision of normal first , antepartum HBSAG (HBS) Routine 06/11/2023 9:55 AM CDT Supervision of normal first , antepartum TREPONEMA PALLIDUM Routine 06/11/2023 9: 55 AM CDT Supervision of normal first , antepartum RUBELLA IMMUNE STATUS Routine 06/11/2023 9:55 AM CDT Supervision of normal first , antepartum VARICELLA ZOSTER IMM ASSY Routine 06/11/2023 9:55 AM CDT Supervision of normal first , antepartum ANTI HIV 1/2 Routine 06/11/2023 9:55 AM CDT Supervision of normal first , antepartum CBC W PLT NO DIFF Routine 06/11/2023 9:5 5 AM CDT Supervision of normal first , antepartum US OB 1ST TRI SINGLE TA Routine 06/01/2023 9:50 AM CDT Early stage of from Last 3 Months Results * (ABNORMAL) COMPLIANCE DRUG ANALYSIS (06/11/2023 10:03 AM CDT) 6-MONOACETYL MORPHINE NEG NEG ng/mL 06/18/2023 11:01 AM CDT [facility] AMPHETAMINE URINE NEG <=500 ng/mL 06/18/2023 11:01 AM [facility] BARBITURATE URINE NEG <=200 ng/mL 06/18/2023 11:01 AM [facility] BENZODIAZEPINE URINE NEG <=100 ng/mL 06/18/2023 11:01 AM [facility] BUPRENORPHRINE URINE NEG <=5 ng/mL 06/05 11:01 AM [facility] COCAINE METAB URINE NEG <=300 ng/mL 06/18/2023 11:01 AM [facility] ETHYLGLUCURONIDE URINE NEG <=250 ng/mL 06/18/2023 11:01 AM [facility] FENTANYL URINE NEG <=4 ng/mL 06/18/2023 11:01 AM [facility] METHADONE URINE NEG <=300 ng/mL 06/18/2023 11:01 AM [facility] OPIATES URINE NEG <=300 ng/mL 06/18/2023 11:01 AM [facility] OXYCODONE URINE NEG <=100 ng/mL 06/18/2023 11:01 AM [facility] PROPOXYPHENE URINE NEG <=300 ng/mL 06/18/2023 11:01 AM [facility] THC 50 URINE NEG <=50 ng/mL 06/18/2023 11:01 AM [facility] TRAMADOL NEG <=200 ng/mL 06/18/2023 11:01 AM [facility] PH URINE 8.1(H) 5.0 - 7.0 06/18/2023 11:01 AM [facility] CREAT UR 187 >=20 mg/dL 06/18/2023 11:01 AM [facility] MASS SPECTROMETRY URINE See Below 06/18/2023 11:01 AM [facility] Comment:No basic or neutral drugs found. Urine URINE SPECIMEN / Unknown Non-Blood / Unknown 06/11/2023 10:03 AM [facility] 06/11/2023 10:[address] [facility] - 06/18/2023 11:01 AM CDT Release to patient->Immediate Venita Green DO URINE [facility] [address] [place] [address], [place] * GC CHLAMYDIA TRACH PROBE (06/11/2023 10:03 AM CDT) CHLAMYDIA PROBE Negative 1:33 AM CDT [facility] N GONORRHOEAE PROBE Negative 06/12/2023 1:33 AM CDT [facility] Other URINE SPECIMEN / Unknown Non-Blood / Unknown 06/11/2023 10:03 AM CDT 06/11/2023 10:03 AM CDT Venita Green DO MICROBIOLOGY Performing Organization Address City/[facility]/ZIP Co de Phone Number [facility] [address] [place] [address], [place] * URINE CULTURE (06/11/2023 10:03 AM CDT) CULTURE <10,000 CFU/mL multiple organisms 06/13/2023 10:52 AM CDT [facility] Urine URINE SPECIMEN / Unknown Non-Blood / Unknown 06/11/2023 10:03 AM CDT 06/11/2023 10:03 AM CDT Venita Green DO MICROBIOLOGY [facility] [address] [place] [address], [place] * URINALYSIS ([id number]) (06/11/2023 10:03 AM CDT) COLOR Yellow Yellow Color 06/11/2023 11:12 AM CDT [facility] CLARITY Clear Clear Clarity 06/11/2023 11:12 AM CDT [facility] SPECIFIC GRAVITY,URINE 1.015 1.010, 1.015, 1.020, 1.025 06/11/2023 11:12 AM CDT [facility] PH,URINE 7.5 6.0, 7.0, 8.0, 5.5, 6.5, 7.5, 8.5 06/11/2023 11:12 AM CDT [facility] UROBILINOGEN,Q UALITATIVE Normal Normal EU/dl 06/11/2023 11:12 AM CDT [facility] PROTEIN, URINE Negative Negative mg/dL 06/11/2023 11:12 AM CDT [facility] GLUCOSE, URINE Negative Negative mg/dL 06/11/2023 11:12 AM CDT [facility] KETONES,URINE Negative Negative mg/dL 06/11/2023 11:12 AM CDT [facility] BILIRUBIN,URIN E Negative Negative 06/11/2023 11:12 AM CDT [facility] OCCULT BLOOD,URINE Negative Negative 06/11/2023 11:12 AM CDT [facility] NITRITE Negative Negative 06/11/2023 11:12 AM CDT [facility] LEUKOCYTE ESTERASE Negative Negative 06/11/2023 11:12 AM CDT [facility] Urine URINE SPECIMEN / Unknown Non-Blood / Unknown 06/11/2023 10:03 AM CDT 06/11/2023 10:03 AM CDT Venita Green DO URINE Performing Organization Address City/[facility] de Phone Number [phone] [place] [address] * TREPONEMA PALLIDUM (06/11/2023 9:55 AM CDT) TREPONEMA PALLIDUM Non-Reacti ve Non-Reacti ve 06/11/2023 1:25 PM CDT [facility] Blood BLOOD SPECIMEN / Unknown Butterfly / Unknown 06/11/2023 9:55 AM CDT 06/11/2023 9:55 AM CDT Venita Palkert Green DO SEND OUTS [facility] [address] [place] [address], * RUBELLA IMMUNE STATUS (06/11/2023 9:55 AM CDT) INTERPRETATION Positive 06/12/2023 9:[address] [facility] Comment:Presence of detectab le IgG antibodies. A positive result generally indicates exposure to the virus or previous vaccination, but is not an indication of active infection or stage of disease. RUBELLA IGG ANTIBODY 2.06 >=1.00 Index 06/12/2023 9:[address] [facility] Blood BLOOD SPECIMEN / Unknown Butterfly / Unknown 06/11/2023 9:55 AM CDT 06/11/2023 9:55 AM CDT Narrative [facility] - 06/12/2023 9:18 AM CDT ??<0.90 ? Negative ?? 0.90-0.99 ?? Equivocal >=1.0 ?Positive Venita Green DO SEND OUTS Performing Organization Address [facility] Co de Phone Number [facility] [address] [place] [address], * TYPE AND SCREEN (06/11/2023 9:55 AM CDT) ABORH O Rh Positive 06/11/2023 3:06 PM CDT [facility] BLOOD B[facility] ANTIBODY SCREEN Negative Negative 06/11/2023 3:06 PM CDT [facility] BLOOD BANK SPECIMEN EXPIRATION DATE/TIME 06/14/23 23:59 06/11/2023 3:06 PM CDT [facility] BLOOD BANK Blood BLOOD SPECIMEN / Unknown Butterfly / Unknown 06/11/2023 9:55 AM CDT 06/11/2023 9:55 AM CDT Venita Green DO BLOOD BANK [facility] BLOOD BANK [address] [place] [id number] * HBSAG (HBS) (06/11/2023 9:55 AM CDT) Pathologist [facility] [place] HBSAG Nonreactive Nonreactive 06/11/2023 1:20 PM CDT [facility] Blood BLOOD SPECIMEN / Unknown Butterfly / Unknown 06/11/2023 9:55 AM CDT 06/11/2023 9:55 AM CDT Venita Green DO SEND OUTS Performing Organization Address City/[facility]/ZIP Co de Phone Number [facility] [address] [place] [address], [place] * ANTI HCV (06/11/2023 9:55 AM CDT) Pathologist [facility] [place] HEPATITIS C ANTIBODY Non-Reacti ve Non-React jocelyn 06/11/2023 1:16 PM CDT [facility] Comment:Please note, per www .CDC.gov: If a patient is known to be at high risk of HCV infection, or is symptomatic, and the physician's suspicion of HCV infection is high, HCV RNA testing is often employed and is of diagnostic value, even after an initial negative anti-HCV test result. Blood BLOOD SPECIMEN / Unknown Butterfly / Unknown 06/11/2023 9:55 AM CDT 06/11/2023 9:55 AM CDT Venita Green DO SEND OUTS [facility] [address] [place], [place] [id number], [place] * CBC W PLT NO DIFF (06/11/2023 9:55 AM CDT) Pathologist [facility] [place] WHITE BLOOD COUNT 7.9 4.5 - 11.0 thou/cu mm 06/11/2023 10:15 AM CDT [facility] RED BLOOD COUNT 4.02 4.00 - 5.20 mil/cu mm 06/11/2023 10:15 AM CDT [facility] HEMOGLOBIN 12.4 12.0 - 16.0 g/dL 06/11/2023 10:15 AM CDT [facility] HEMATOCRIT 36.2 33.0 - 51.0 % 06/11/2023 10:15 AM CDT [facility] MCV 90 80 - 100 fL 06/11/2023 10:15 AM CDT [facility] MCH 30.8 26.0 - 34.0 pg 06/11/2023 10:15 AM CDT [facility] MCHC 34.3 32.0 - 36.0 g/dL 06/11/2023 10:15 AM CDT [facility] RDW 11.7 11.5 - 15.5 % 06/11/2023 10:15 AM CDT [facility] PLATELET COUNT 302 140 - 440 thou/cu mm 06/11/2023 10:15 AM CDT [facility] MPV 9.4 6.5 - 11.0 fL 06/11/2023 10:15 AM CDT [facility] NRBC 0.0 % 06/11/2023 10:15 AM CDT [facility] ABS NRBC 0.0 thou /cu mm 06/11/2023 10:15 AM CDT [facility] Blood BLOOD SPECIMEN / Unknown Butterfly / Unknown 06/11/2023 9:55 AM CDT 06/11/2023 9:55 AM CDT Venita Green DO HEMATOLOGY [facility] [address] [place] [address] * VARICELLA ZOSTER IMM ASSY (06/11/2023 9:55 AM CDT) INTERPRETATION Positive 06/12/2023 9:18 AM CDT [facility] Comment:Presence of detectab le IgG antibodies. A positive result generally indicates exposure to the virus or previous vaccination, but is not an indication of active infection or stage of disease. VARICELLA ZOSTER IGG ANTIBODY 306.3 >=165.0 INDEX 06/12/2023 9:18 AM CDT [facility] NTRAL LABORATORY Blood BLOOD SPECIMEN / Unknown Butterfly / Unknown 06/11/2023 9:55 AM CDT 06/11/2023 9:55 AM CDT Narrative [facility] - 06/12/2023 9:18 AM CDT ?? <135.0 ? Negative ?? 135.0-164.9 ?? Equivocal ??>=165.0 ? Positive Venita Green DO CHEMISTRY Performing Organization Address City/[facility]/ZIP Co de Phone Number [facility] [address] [place] [address], [place] * ANTI HIV 1/2 (06/11/2023 9:55 AM CDT) HIV-1/HIV-2 SCREEN Non-Reacti ve Non-Reacti ve 06/11/2023 1:20 PM CDT [facility] Comment:HIV-1 p24 and HIV-1/ HIV-2 Ab Not Detected. Blood BLOOD SPECIMEN / Unknown Butterfly / Unknown 06/11/2023 9:55 AM CDT 06/11/2023 9:55 AM CDT Venita Green DO SEND OUTS Performing Organization Address [facility] Co de Phone Number [facility] [address] [place] [address], [place] * US OB 1ST TRI SINGLE TA (06/01/2023 9:50 AM CDT) Anatomical Region Laterality Modality , 1ST TRIMESTER Ultrasound Impressions 06/01/2023 12:27 PM CDT 1. Inman, viable, intrauterine . 2. Ultrasound EDC is 01/08/2024 with a gestational age of 8 weeks 3 days. 3. No adnexal masses are seen. Venita Green DO 06/01/2023 12:24 PM [facility] [address] [address] Narrative 06/01/2023 12:27 PM CDT Table formatting from the original result was not included. For Patients: Results are automatically released to your [employer]iterate ([employer]) account once available, in compliance with federal regulations. This means that you may see your results before your provider has had a chance to review them. Please allow 2-3 business days for your provider to comment on the results. Early Ultrasound Date of exam: 06/01/2023 Indication for exam: 1. Early stage of ?? Requesting Provider: Venita Green DO TECHNIQUE: Transabdominal scan was performed. Transvaginal scan was not performed. FINDINGS: The uterus is normal size. The myometrium is homogeneous. There are no myomas noted. The right ovary is not identified due to bowel. The left ovary is normal in appearance. Free fluid in the cul de sac: none There is a single, living, intrauterine . The crown-rump length is 1.8 cm. These measurements correspond to a 8 week 3 day gestation with an EDC of ??01/08/2024. The yolk sac is identified, appears normal, and measures 3 mm. heart activity is present with a rate of 167 beats per minute. Venita Green DO US from Last 3 Months Care Teams Rubber Stamp Die Inspector Relationship Specialty Start Date End Date None . PCP - General 05/08/23 Venita Green DO [address] [facility] [address] [place] [id number] Referring Provider Obstetrics and Gynecology 06/12/23
--- OUTSIDE RECORDS SUMMARY | 2023-07-17 22:54 | XMS_ITS | Encounter Summary ---
Author Organization [facility] Address [address] [place] [address] Care Team Providers Care Caul Puller Name Role Phone Jose Raul Ott MD Primary Care Provider Reason for Visit * Reason Comments Pharyngitis Encounter Details Date Type Department Care Team (Late st Contact Info) Description 07/17/2023 12:20 PM CDT Office Visit [id number] [facility] [address] [place] [address] Jacqui Cleveland MD [address] [place], [place] [id number] Sore throat; Non-recurrent acute suppurative otitis media of right ear without spontaneous rupture of tympanic membrane Social History Tobacco Use Types Packs/Day Years [...] on file Sexual Orientation Not on file documented as of this encounter Last Filed Vital Signs Vital Sign Reading Time Taken Comments Blood Pressure 125/68 07/17/2023 12:25 PM CDT Pulse 89 07/17/2023 12:25 PM CDT Temperature 36.6 ??C (97.9 ??F) 07/17/2023 12:25 PM C DT Respiratory Rate 16 07/17/2023 12:25 PM CDT Oxygen Saturation 100% 07/17/2023 12:25 PM CDT Inhaled Oxygen Concentration - - Weight - - Height - - Body Mass Index - - documented in this encounter Patient Instructions * Patient Instructions* aJcqui Cleveland MD - 07/17/2023 12:20 PM CDT tylenol 1000 mg every 6 hours or both alternating as needed for pain or fever. Push fluids and rest. Recheck if your ear pain is not improving in about 48 hrs or you are getting worse instead of better. Finish all of your antibiotics. * Attachments The following attachments cannot be sent through Care Everywhere. * Otitis Media (Slovak) documented in this encounter Progress Notes * Jacqui Cleveland MD - 07/17/2023 12:20 PM CDT [facility] Nursing Notes: Chet Bishop 07/17/23 1224 Signed Allyson Ortiz is a 18 y.o.female presents to the Urgent Care for Pharyngitis Symptoms began: 5 hour(s) ago and are show no change. Pain Scale: 10/10 Fever: absent. Associated symptoms: chills, ear pain, headache, nasal congestion. Fluid intake is good. Exposure: no at no exposure . OTC remedies: acetaminophen. Relief of symptoms: mild. Patient requests an excuse letter for work/school: No Patient: Allyson Ortiz Date of : 2005 (18 y.o.) Subjective Chief Complaint: Chief Complaint Patient presents with Pharyngitis History of Present Illness: Allyson Ortiz is a 18 y.o.female who presents with sore throat for the last 5 hours. Assoc symptoms include: chills, ear pain, nasal congestion, and sore throat. Does not have fever. has not been exposed to strep. has not been exposed to mono. Is 15 weeks . No dysuria. Objective Physical Exam: Vital Signs: BP 125/68 (BP Location: Right Arm, BP Cuff Size: Regular) Pulse 89 Temp 36.6 ??C (97.9 ??F) (Oral) Resp 16 LMP 04/03/2023 SpO2 100% NAD General: Patient does not appear acutely ill. Skin: Mucous membranes are moist. No sign of obvious dehydration. Ears: Canals normal without lesions. TMs: right TM dull and erythematous Pharynx: mild erythema Neck: no adenopathy Respiratory: Normal respiratory effort. Lungs are clear with good breath sounds. Heart: RR without murmurs, rubs, or gallops. FHT:s 150's Laboratory Testing: No results found for this visit on 07/17/23. Interventions: Orders Placed This Encounter STREP GROUP A, Molecular Detection-Collect Now in current encounter amoxicillin (AMOXIL) 500 MG capsule Assessment MDM: right OM and possibly strep. Treating for the ear infection. Impression: 1. Sore throat 2. Non-recurrent acute suppurative otitis media of right ear without spontaneous rupture of tympanic membrane Plan Patient Discharge Medications & Instructions: Medications Prescribed this Visit Disp Refills Start End amoxicillin (AMOXIL) 500 MG capsule 40 Capsule 0 07/17/2023 07/27/2023 Take 2 Capsules (1,000 mg) by mouth two times a day for 10 days. Oral Patient Instructions tylenol 1000 mg every 6 hours or both alternating as needed for pain or fever. Push fluids and rest. Recheck if your ear pain is not improving in about 48 hrs or you are getting worse instead of better. Finish all of your antibiotics. Jacqui Cleveland MD documented in this encounter Nursing Notes * Chet Bishop - 07/17/2023 12:20 PM CDT Allyson Ortiz is a 18 y.o.female presents to the Urgent Care for Pharyngitis Symptoms began: 5 hour(s) ago and are show no change. Pain Scale: 10/10 Fever: absent. Associated symptoms: chills, ear pain, headache, nasal congestion. Fluid intake is good. Exposure: no at no exposure . OTC remedies: acetaminophen. Relief of symptoms: mild. Patient requests an excuse letter for work/school: No documented in this encounter Plan of Treatment Not on file documented as of this encounter Procedures Procedure Name Priority Date/Time Associated Diagnosis Comments STREP GROUP A, MOLECULAR DETECTION Waiting 07/17/2023 12:27 PM CDT Sore throat documented in this encounter Results * STREP GROUP A, Molecular Detection-Collect Now in current encounter (07/17/2023 12:27 PM CDT) [facility] Group A Strep Not Detected Not Detected 024 1:03 PM CDT [facility] Comment:Methodology: Qualita tive real-time PCR assay Swab (Source Required) THROAT SWAB / Unknown Non-blood Collection / Unknown 07/17/2023 12:27 PM CDT 07/17/2023 12:38 PM CDT [facility] [address] [place] [address], [facility] documented in this encounter Visit Diagnoses Diagnosis Sore throat Acute pharyngitis Non-recurrent acute suppurative otitis media of right ear without spontaneous rupture of tympanic membrane documented in this encounter Care Teams Caul Puller Relationship Specialty Start Date End Date Jose Raul Ott MD [address] [place] [address] PCP - General Family Practice 02/10/22 documented as of this encounter
--- OUTSIDE RECORDS SUMMARY | 2023-07-17 22:54 | XMS_ITS | Encounter Summary ---
Author Organization [facility] Address [address] [place] [address] Care Team Providers Care Fertilizer Loader Name Role Phone Jose Raul Ott MD Primary Care Provider Reason for Visit * Reason Comments TEST, Encounter Details Date Type Department Care Team (Late st Contact Info) Description 05/03/2023 6:20 PM CDT Office Visit [facility] [address] [facility] [address] [place] [address] Sunday Navarrete, NAVAL GUNFIRE SPOTTER, PRODUCTION OFFICER [address] [place], [place] [address] Encounter for test, result unknown; , unspecified gestational age Social History Tobacco Use Types Packs/Day Years [...] or from getting your medications? No 023 Sex and Gender Information Value Date Recorded Sex Assigned at Not on file Gender Identity Not on file Sexual Orientation Not on file documented as of this encounter Last Filed Vital Signs Vital Sign Reading Time Taken Comments Blood Pressure 125/68 05/03/2023 5:18 PM CDT Pulse 106 05/03/2023 5:18 PM CDT Temperature - - Respiratory Rate 16 05/03/2023 5:18 PM CDT Oxygen Saturation 100% 05/03/2023 5:18 PM CDT Inhaled Oxygen Concentration - - Weight - - Height - - Body Mass Index - - documented in this encounter Progress Notes * Sunday Navarrete, NAVAL GUNFIRE SPOTTER, PRODUCTION OFFICER - 05/03/2023 6:20 PM CDT Patient ID Allyson Ortiz 2005 Chief Complaint Patient presents with TEST, SUBJECTIVE: 18 y.o. female presents with Request to confirm . She took a home test today as she missed her period which was supposed to start today. Noted that a was positive and wanted confirmation therefore presented here. Does not have any abdominal pain. No bleeding. No other concerns orcomplaints. This would be her 1st . She no longer has a IUD. Past medical and surgical history reviewed on EMR. Medications reviewed on EMR Allergies Allergen Reactions Sulfa Antibiotics Hives ROS: As noted in HPI, all other systems are negative OBJECTIVE: Patient Vitals for the past 24 hrs: BP Pulse Resp SpO2 05/03/23 1718 125/68 (!) 106 16 100 % General: Alert, No obviousdiscomfort, well kept Eyes: PERRL, conjunctivae pink no scleral icterus or conjunctival injection ENT: Moist mucus membranes, Normal voice Resp: No cough, normal work of breathing,. Good air movement CV: Normal rate Skin: Warm, dry. No rashes or petechiae Musculoskeletal: Normal gross ROM Neuro: Alert and oriented to person/place/time, normal sensation Psychiatric: Normal affect, cooperative, good eye contact LABS: Results for orders placed or performed in visit on 05/03/23 Test (Urine) - Collect in Clinic Today Result Value Ref Range HCG, Urine Positive (A) Negative IMAGING: No results found. Urgent Care treatments: Outpatient Encounter Medications as of 05/03/2023 Medication Sig Note Dispense Refill sertraline (ZOLOFT) 50 MG tablet Take 1 Tablet (50 mg) by mouth daily. 30 Tablet 1 [DISCONTINUED] levonorgestrel (KYLEENA) 19.5 MG IUD 1 Each by Intrauterine route. (Patient not taking: Reported on 05/03/2023) 05/03/2023: Removed No facility-administered encounter medications on file as of 05/03/2023. ASSESSMENT: 18 y.o. female presented with Concerns as noted above. Her test was positive here. I reassured her that the home test is accurate and advised her to follow up with junior software engineer. I did recommend taking a good vitamin. There was no indication for any further testing or imaging at this time. She does appear to be safe and appropriate for outpatient management and follow-up and is discharged home. Diagnosis and Associated Orders ICD-10-CM 1. Encounter for test, result unknown Z32.00 Test (Urine) - Collect in Clinic Today 2. , unspecified gestational age Z34.90 PLAN: Follow up with primary care physician in 3 - 5 days or sooner if symptoms worsen, go to the ER if worsening or if further concerns. documented in this encounter Nursing Notes * Suzanne Toussaint RN - 05/03/2023 6:20 PM CDT Patient comes in for confirmation. She states she took a positive at home test and would like confirmation. Approximate LMP 04/03/23 documented in this encounter Plan of Treatment Not on file documented as of this encounter Procedures Procedure Name Priority Date/Time Associated Diagnosis Comments TEST (URINE) STAT 05/03/2023 5:20 PM CDT Encounter for test, result unknown documented in this encounter Results * (ABNORMAL) Test (Urine) - Collect in Clinic Today (05/03/2023 5:20 PM CDT) HCG, Urine Positive(A ) Negative 05/03/2023 5:30 PM CDT [facility] Urine Non-blood Collection / Unknown 05/03/2023 5:20 PM CDT 05/03/2023 5:25 PM CDT [facility] Carpenter Paulie [facility] [address] [place] [address] documented in this encounter Visit Diagnoses Diagnosis Encounter for test, result unknown , unspecified gestational age documented in this encounter Care Teams Fertilizer Loader Relationship Specialty Start Date End Date Jose Raul Ott MD [address] [place] [address] PCP - General Family Practice 02/10/22 documented as of this encounter
--- OUTSIDE RECORDS SUMMARY | 2023-07-17 22:54 | XMS_ITS | Clinical Summary ---
Author Organization [facility] Address [address] [place] [address] Care Team Providers Care Corporate Investigator Name Role Phone Kellie Turpin MD Unavailable Kizzy Novak PA-C Primary Care Provider [phone] Lachelle Ortiz MD Unavailable [phone] Melinda Kc APRN [employer] Unavailable [phone] Allergies Active Allergy Reactions Criticality Noted Date [...] 05/20/2004, 4,2003,04/06 DTaP/HepB/IPV 2003,2003,2003 Flu, Unspecified 12/01/2012 [id number] Novel Flu- Nasal 02/17/2009 HEPATITIS A (PEDS [...] 09/09/2015 TRIHIBIT (DTAP/HIB, <7y) 05/20/2004 Varicella 01/06/2016,02/02/2004 Family History Medical History Relation Comments Migraines Father Cerebrovascular Disease Maternal Grandmother Migraines Mother Heart Disease Paternal Grandfather AICD Heart Disease Paternal Grandmother AICD Relation Status Comments Brother Alive Father Alive Maternal Grandfather Alive Maternal Grandmother Alive Mother Alive Paternal Grandfather Alive Paternal Grandmother Alive Sister Alive Social History Tobacco Use Types [...] Comments Blood Pressure 108/66 04/06/2021 9:00 AM STARBUCKS CLERK Pulse 83 04/06/2021 9:00 AM STARBUCKS CLERK Temperature 36.6 ??C (97.8 ??F) 04/06/2021 9:00 AM CS T Respiratory Rate 18 04/06/2021 9:00 AM STARBUCKS CLERK Oxygen Saturation 98% 04/06/2021 9:00 AM STARBUCKS CLERK Inhaled Oxygen Concentration - - Weight 61.2 kg (135 lb) 04/06/2021 9:00 AM STARBUCKS CLERK Height 167.6 cm (5' 6) 04/06/2021 9:00 AM STARBUCKS CLERK Body Mass Index 21.79 04/06/2021 9:00 AM STARBUCKS CLERK Plan of Treatment Health Maintenance Due Date Last Done Comments MIGRAINE ACTION PLAN 2003 ANNUAL REVIEW OF HM ORDERS 04/06/2022 04/06/2021 CHLAMYDIA SCREENING 04/06/2022 04/06/2021, YEARLY PREVENTIVE VISIT 04/06/2022 04/06/2021, 04/28 COVID-19 Vaccine ( season) 2022 04/06/2021, 10/22/2020, 09/24/2020 PHQ-2 (once per calendar year) 2023 04/06/2021 INFLUENZA VACCINE (Season Ended) 2023 04/06/2021, 11/23/2019, 10/17/2018, Additional history exists DTAP/TDAP/TD IMMUNIZATION (6 - Td or Tdap) 09/08/2025 09/09/2015, 05/20/2004, 05/20/2004, Additional history exists ADVANCE CARE PLANNING 04/06/2026 04/06/2021 Pneumococcal Vaccine: Pediatrics (0 to 5 Years) and At-Risk Patients (6 to 64 Years) Aged Out 05/20/2004, 2003, 2003, Additional history exists No longer eligible based on patient's age to complete this topic IPV IMMUNIZATION Completed 09/08/2015, , 2003, Additional history exists HEPATITIS B IMMUNIZATION Completed 018, 2003, 2003, Additional history exists HPV IMMUNIZATION Completed 11/02/2017, 02/2015, 09/09/2015, Additional history exists HEPATITIS C SCREENING Completed 04/06/2021 HIV SCREENING Completed 04/06/2021 MENINGITIS IMMUNIZATION Completed 04/07/19, 02/17/2019, 09/09/2015 RSV MONOCLONAL ANTIBODY Aged Out No l onger eligible based on patient's age to complete this topic Procedures Procedure Name Priority Date/Time Associated Diagnosis Comments NEISSERIA GONORRHOEAE PCR Routine 04/06/2021 9:58 AM STARBUCKS CLERK Routine screening for STI (sexually transmitted infection) HIV ANTIGEN ANTIBODY COMBO Routine 04/06/2021 9:54 AM STARBUCKS CLERK Screening for HIV (human immunodeficiency virus) HEPATITIS C SCREEN REFLEX TO HCV RNA QUANT AND GENOTYPE Routine 04/06/2021 9:54 AM STARBUCKS CLERK Need for hepatitis C screening test from Last 3 Months or Most Recently Relevant to Health Maintenance Results * NEISSERIA GONORRHOEA PCR (04/06/2021 9:58 AM STARBUCKS CLERK) Neisseria gonorrhoeae Negative Negative 04/07/2021 1:40 PM STARBUCKS CLERK [facility] Comment:Negative for N. gono rrhoeae rRNA by cinder crew worker mediated amplification. A negative result by cinder crew worker mediated amplification does not preclude the presence of C. trachomatis infection because results are dependent on proper and adequate collection, absence of inhibitors and sufficient rRNA to be detected. Swab VAGINAL STRUCTURE / Unknown Non-blood Collection / Unknown 04/06/2021 9:58 AM STARBUCKS CLERK 04/06/2021 9:58 AM STARBUCKS CLERK Melinda Kc APRN [facility] LAB - MICRO GEN ERAL ORDERABLES [facility] Inf. Diseases Diag. Lab [address] [facility], [address] [place] [id number], [facility] [phone] * HIV Antigen Antibody Combo (04/06/2021 9:54 AM STARBUCKS CLERK) Pathologist [facility] HIV Antigen Antibody Combo Nonreactive Nonreactive 04/06/2021 6:55 PM STARBUCKS CLERK SPECIALTY CORE/PROT/EN DO Comment:HIV-1 p24 Ag & HIV-1 /HIV-2 Ab Not Detected Blood STRUCTURE OF RIGHT UPPER LIMB / Unknown Venipuncture / Unknown 04/06/2021 9:54 AM STARBUCKS CLERK 04/06/2021 9:55 AM STARBUCKS CLERK Melinda Kc APRN [facility] LAB - BLOOD ORD ERABLES [facility] CORE/PROT/ENDO Specialty Core/Prot/Endo [address] [facility], [address] [place] [address], [facility] [phone] * Hepatitis C Screen Reflex to HCV RNA Quant and Genotype (04/06/2021 9:54 AM STARBUCKS CLERK) Pathologist [facility] Hepatitis C Antibody Nonreactive Nonreactive 04/06/2021 6:55 PM STARBUCKS CLERK SPECIALTY CORE/PROT/EN DO Blood STRUCTURE OF RIGHT UPPER LIMB / Unknown Venipuncture / Unknown 04/06/2021 9:54 AM STARBUCKS CLERK 04/06/2021 9:55 AM STARBUCKS CLERK Narrative [facility] SPECIALTY CORE/PROT/ENDO - 04/06/2021 6:55 PM STARBUCKS CLERK Assay performance characteristics have not been established for newborns, infants, and children. Melinda Kc APRN, CNP LAB - BLOOD ORD ERABLES [facility] SPECIALTY CORE/PROT/ENDO Specialty Core/Prot/Endo [address] [facility] [address] Building, [address] [phone] from Last 3 Months or Most Recently Relevant to Health Maintenance Care Teams Corporate Investigator Relationship Specialty Start Date End Date Kizzy Novak PA-C [address] [place] [address] [id number] PCP - General Physician Field Artillery Officer 10/30/16 Kellie Turpin MD [address] [place] [address] [phone] Pediatric Rheumatology 08/09/16 Lachelle Ortiz MD [address] [facility] [address] [place] [address] Pediatric Neurology 10/30/16 Melinda Kc APRN CNP [address] [place] [address] Assigned PCP 04/10/21
[2023-07-17 22:55] LABS: Basophils Absolute Auto 0.02 K/uL (0.00-0.30); Basophils Percent Auto 0.2 % (0.0-3.0); Eosinophils Absolute Auto 0.08 K/uL (0.00-0.50); Eosinophils Percent Auto 0.9 % (0.0-7.0); Hematocrit 30.1 % (33.0-51.0); Hemoglobin* 10.4 gm/dL (12.0-16.0); Immature Granulocytes Abs Auto 0.08 K/uL (0.00-0.30); Immature Granulocytes Pct Auto 0.9 %; Mean Corpuscular HGB Conc 35 gm/dL (32-36); Mean Corpuscular Hemoglobin 31 pg (26-34); Mean Corpuscular Volume 89 fL (80-100); Monocytes Percent Auto 5.2 % (0.0-11.0); Neutrophils Percent Auto 86.8 % (42.0-72.0); Platelet Count* 262 K/uL (140-440); RDW Coefficient of Variation % 12.3 % (11.5-15.5); Red Blood Count 3.38 m/uL (4.00-5.20); White Blood Count* 9.18 K/uL (4.50-11.00)
[2023-07-17 22:57] LABS: Slide Review Reflex No
[2023-07-17 23:01] LABS: Strep A DNA Probe* NOT DETECTED (Not Detectd)
[2023-07-17 23:14] LABS: PCR FLU A Negative PCR FLU A (Negative); PCR FLU B Negative PCR FLU B (Negative); PCR RSV Negative PCR RSV (Negative); SARS PCR* Negative SARS-CoV-2 (Negative)
== END 2023-07-17 23:31 | disposition home or self-care (01) ==
PROVIDERS: Emergency Provider Family Medicine
DX: H66.91 Otitis media, unspecified, right ear (principal)
CPT/HCPCS: 36415; 85025; 86308; 87631; 87651; 99283; 99284